=== PATIENT | male | born 1985 | race Two or more races ===

== ENCOUNTER → 2024-06-26 | Outpatient (CLI) | payer OTHER ==
--- NOTE | 2024-06-26 14:00 | CT ---
EXAMINATION TYPE: CT chest wo con CT DLP: 788 mGycm, Automated exposure control for dose reduction was used. DATE OF EXAM: 06/26/2024 1:32 PM COMPARISON: None CLINICAL INDICATION:Male, 38 years old with history of R06.02 SOB; PHH, COUGHED UP BLOOD TECHNIQUE: Multiple axial images were obtained through the chest without IV contrast. Lack of IV or o ral contrast limits evaluation of solid and hollow organ viscera. . Coronal and sagittal reformats re viewed. FINDINGS: LUNGS/ PLEURA: Incidental azygous fissure. No pleural effusion, pneumothorax, focal consolidation. Pe ripheral right lower lobe 3.2 mm pulmonary nodule (series 4, image 41). Anterior right midlung 2.6 mm pulmonary nodule (series 4, image 28). AIRWAY: Patent and unremarkable.. HEART: Size within normal limits. . No pericardial effusion. No significant coronary artery calcifica tions. MEDIASTINUM: No gross evidence of adenopathy. VASCULATURE: No aortic aneurysm. MUSCULOSKELETAL: No acute osseous abnormalities. 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 SOFT TISSUES/LYMPH NODES: Mild bilateral gynecomastia. LOWER NECK: No significant findings. UPPER ABDOMEN: Diffuse low-attenuation to the liver parenchyma. IMPRESSION: 1. No CT evidence for acute thoracic process. 2. Couple of right lung pulmonary nodules measuring less than 4 mm. According to Fleischner criteria, in a low risk patient no follow-up is recommended. In a high-risk patient consider optional CT chest in 12 months. 3. Hepatic steatosis. [facility], , 06/26/2024 1:58 PM
== END | disposition home or self-care (01) ==
LOC: RADCTMAIN 13:15
PROVIDERS: ATTEND Family Medicine
DX: R91.8 Other nonspecific abnormal finding of lung field (principal); K76.0 Fatty (change of) liver, not elsewhere classified
CPT/HCPCS: 71250